=== PATIENT | female | born 1990 | race Caucasian/White ===

== ENCOUNTER 2019-12-13 09:31 | Emergency (ER) | payer SELFPAY ==
[2019-12-13 10:03] VITALS: BP 128/71; PULSE 87; RESP 20; TEMP 36.9; O2SAT 100
--- NOTE | 2019-12-13 10:17 | ED.URI ---
HPI - URI/Sore Throat General Chief Complaint: Upper Respiratory Infection Stated Complaint: cough chest congestion sore throat Time Seen by Provider: 12/13/19 10:17 Source: patient and RN notes reviewed Mode of arrival: ambulatory Limitations: no limitations History of Present Illness HPI Narrative: 29-year-old female presents with concern for 3-week history of cough, nasal congestion, brown sputum, hoarse voice. Reports intermittent fevers of up to 102 MD elicited complaint: sore throat Related Data Home Medications Medication Instructions Recorded Confirmed Bcp 12/13/19 Allergies Allergy/AdvReac Type Severity Reaction Status Date / Time No Known Allergies Allergy Unverified 04/14/19 19:40 Review of Systems Review of Systems: Narrative: CONSTITUTIONAL: Reports malaise. Denies current chills, sweats, or fever. EYES: Denies visual changes, redness, or discharge. ENT: Reports rhinorrhea, congestion, sinus pain, otalgia. Denies sore throat. CARDIOVASCULAR: Denies chest pain, palpitations, or edema. RESPIRATORY: Reports cough, chest congestion, hoarse voice. Denies dyspnea. GASTROINTESTINAL: Denies abdominal pain, nausea, vomiting, diarrhea SKIN: Denies rash or itching. MUSCULOSKELETAL: Reports myalgia. NEUROLOGIC: Reports headache. All systems reviewed & are unremarkable except as noted in HPI and below PMFSH Comments At time of signature, agree with nursing past medical, surgical, social and family history. There is no relevant family history pertinent to the presenting complaint Exam Narrative: Exam Narrative: GENERAL: Well-appearing, well-nourished, and in no acute distress. HEAD: Normocephalic EYES: PERRLA, conjunctivae clear ENT: Nares clear, turbinates edematous and erythematous, purulent discharge, sinus tenderness. Mucous membranes moist. TM pearly thompson with dull light reflex bilaterally; no tragal tenderness. Oropharynx erythematous without lesions. Tonsils not enlarged and without exudate, no drooling, no trismus. Hoarse voice NECK: Supple. No lymphadenopathy CHEST: Clear to auscultation, breath sounds equal. No wheezing, rhonchi, rales, or stridor. No respiratory distress, speaks in full sentences. Cough noted HEART: Regular rate and rhythm. No murmur heard. Normal peripheral pulses. SKIN: Warm, dry, no rash. NEURO: Alert and oriented x3. PSYCH: Normal mood and affect Course Course Emergency Course: Patient is aware of diagnosis, understands and agrees to treatment plan. Anticipatory guidance given. Patient agrees to follow-up as directed and is aware of reasons to seek care at the emergency department. Portions of this record may have been created with voice recognition software Vital Signs Vital signs: Vital Signs Temperature 98.5 F 12/13/19 10:03 Pulse Rate 87 12/13/19 10:03 Respiratory Rate 20 12/13/19 10:03 Blood Pressure 128/71 12/13/19 10:03 Pulse Oximetry 100 12/13/19 10:03 Temperature 98.5 F 12/13/19 10:03 Pulse Rate 87 12/13/19 10:03 Respiratory Rate 20 12/13/19 10:03 Blood Pressure 128/71 12/13/19 10:03 Pulse Oximetry 100 12/13/19 10:03 Reviewed. MDM - URI/Sore Throat MDM Narrative Medical decision making narrative: Differential diagnosis considered: Strep pharyngitis, allergic rhinitis, upper respiratory tract infection, sinusitis, rhinosinusitis, nasopharyngitis. viral pharyngitis, otitis media, otitis externa, pneumonia, bronchitis, viral cough syndrome, viral syndrome, and influenza. Exam findings show no acute concerns or changes; patient is non-toxic appearing and is in no distress. Patient is appropriate for outpatient treatment and follow-up. Critical Care Time Critical Care Time Critical Care Time: No Discharge Plan Discharge Clinical Impression: Sinobronchitis Patient Disposition: Home, Self-Care Condition: Stable Instructions: Antibiotic Form, Acute Bronchitis (ED) Additional Instructions: Take medications as dire
== END 2019-12-13 10:39 | disposition home or self-care (01) ==
PROVIDERS: Emergency Provider Nurse Practitioner; PCP Family Medicine Adolescent Medicine
DX: J32.9 Chronic sinusitis, unspecified (principal); J40 Bronchitis, not specified as acute or chronic; E28.2 Polycystic ovarian syndrome
CPT/HCPCS: 99213; G0463

== ENCOUNTER 2023-03-30 07:29 | Day surgery (SDC) | payer OTHER, SELFPAY ==
[2023-03-14 11:40] VITALS: BMI 28.5
[2023-03-30] VITALS (7 sets, daily range): BP systolic 88–122; BP diastolic 61–75; PULSE 72–113; RESP 14–18; TEMP 36.3–37.1; O2SAT 99–100
[2023-03-30] MEDS: LACTATED RINGERS 1,000 ML 30 ML IV CONT ×2 (08:15→10:59)
--- NOTE | 2023-03-30 08:54 | P.PNAN_ITS ---
Anes - Initial Pre Proc Eval Procedure: Operation Date: 03/30/23 09:30 Proposed Procedures p Bilateral Breast Implant Exchange with Capsulectomy - Diaz Marino MD Date/Time: 03/30/23 08:54 Surgeon: Diaz Marino MD Pre Op Diagnosis: History of Breast Augmentation Patient Data Age: 32 Gender: F Height: 1.6 m Weight: 75.3 kg Allergies Allergy/AdvReac Type Severity Reaction Status Date / Time No Known Allergies Allergy Verified 03/30/23 08:23 Home Medications Medication Instructions Recorded Confirmed Type bupropion HCl 75 mg tablet 150 mg PO DAILY 07/14/22 03/30/23 History valacyclovir 500 mg tablet 500 mg PO DAILY 07/14/22 03/30/23 History nystatin 500,000 unit tablet 500,000 unit PO TID 03/14/23 03/30/23 History potassium chloride 10 mEq 10 meq PO DAILY 03/14/23 03/30/23 History capsule,extended release thyroid (pork) 15 mg tablet (DOCKWORKER 15 mg PO DAILY 03/14/23 03/30/23 History Thyroid) thyroid (pork) 60 mg tablet (DOCKWORKER 60 mg PO DAILY 03/14/23 03/30/23 History Thyroid) Patient hx anesthesia problems: none Family hx anesthesia problems: none Results Review: All pre-operative results and documents have been reviewed as part of the pre- operative evaluation. [facility] [place] Past Medical History Medical History (Updated 03/30/23 @ 08:59 by Foster Jordan DO) Hypothyroidism Surgical History Surgical History (Updated 03/30/23 @ 08:59 by Foster Jordan DO) History of repair of vocal cord nodules removed Social History Social History Smoking status: Never smoker Alcohol intake: never Substance use: current Substance use type: marijuana Spiritual care concerns: No Anes - Eval Final PreProcedure Day of Procedure 03/30/23 08:54 Patient weight: overweight Heart: regular rate and rhythm Lungs: clear to auscultation Airway: Mallampati scale class II Neurological: alert and oriented Last oral intake: >/= 8 hours ASA classification: II Emergent: no Anesthetic plan: proceed Anesthesia type and monitoring: general LMA and standard monitoring Results Review: All pre-operative results and documents have been reviewed as part of the pre- operative evaluation. Informed Consent: The patient's anesthetic plan and its attendant risks and benefits were discussed with the patient/family/POA. Questions were solicited and answers provided to the satisfaction of the patient/family/POA.
--- NOTE | 2023-03-30 08:56 | WPDHPUPDATE1 ---
History and Physical Update Update Date/Time: 03/30/23 08:56 History and Physical has been reviewed, including an updated exam of the patient. There are NO changes in the patient's condition. Risks, benefits, and alternatives have been discussed and questions answered. Patient agrees to proceed with procedure.
--- NOTE | 2023-03-30 08:56 | W.PM.PROC2 ---
Procedure Note - Detailed Date of Procedure 03/30/23 Pre-op Diagnosis History of Breast Augmentation Post-op Diagnosis Same Procedure Performed Bilateral breast implant exchange Surgeon Diaz Marino MD Anesthesia General Findings Previous Implants: Right 68MP-420 ruptured Left 68MP-420 intact New Implants: Right REF# [id number] SN [id number] 420cc filled to 450cc Left REF#[id number] SN [id number] 420cc filled to 450 cc Description of Procedure Preoperatively the risks, benefits, alternatives were discussed in extensive detail. I wanted to be very realistic about the risks involved as well as expectations. She understands our recommendations for mastopexy / implant exchange; however, she declines and wants to just replace current implants. I was clear about how we could actually make her worse. Answered all questions to satisfaction. Voiced a clear understanding. Consent obtained. She was taken the operating room placed supine on the operating room table. Anesthesia provided by anesthesiology and prepped and draped in a standard sterile fashion. Surgical time-out was taken. 1% lidocaine and 0.25% Marcaine with epinephrine was used to provide a field block. Tegaderm nipple gale were placed. Fifteen blade used to excise the previous IMF scars. Dissection was continued down until the capsules were identified. On the right portion of anterior capsule was removed and sent to pathology. I then copiously irrigated with 3 L of saline solution on TUR tubing. Verified strict hemostasis. Bilateral medial / superior capsulotomy performed and bilateral lateral popcorn capsulorrhaphy performed. I then irrigated with Betadine containing solution. The implant was prepared on the back table removing all air as soaking in betadine solution. Implant introduced into the pocket and filled using a fill kit to the volumes above. Once happy with position / fill tubing was removed and I verified the valve was seated correctly. This was closed with 2-0 PDS followed by 3-0 Monocryl and a running subcuticular 4-0 Monocryl followed by tissue glue. Dressings were placed. She was woken taken to the PACU without difficulty. All instrument sponge counts were correct at the end of the case. Estimated Blood Loss 30 Drains No Packing No Pathology Yes (Right breast capsule) Complications No immediate complications Condition Stable Disposition PACU
[2023-03-30] MEDS: SCOPOLAMINE 1.5 MG PATCH TRANSDERM (09:07)
[2023-03-30] MEDS: ceFAZolin 2 GM/D5W 50 ML 2 GM/50 ML BAG IVPB (09:08)
[2023-03-30] MEDS: TRANEXAMIC ACID 1,000 MG/10 ML AMPUL 1000 MG IV PUSH (09:27)
[2023-03-30] MEDS: LIDO 1%/EPINEPHRINE 1:100,000 50 ML VIAL 30 ML INFILTRATE (09:43)
[2023-03-30] MEDS: NACL 0.9% IRRIG POUR BOTTLE 900 ML, GENTAMICIN SULFATE INJ 160 MG, ceFAZolin 2 GM, POVI... IRRIGATION (10:00)
[2023-03-30] MEDS: oxyCODONE HCL (*CRX) 5 MG TAB IR PO (12:03)
--- NOTE | 2023-03-30 15:34 | WPDANESPN ---
Anes - Prog Note Post-Op Date/Time: 03/30/23 15:34 Cardiovascular status: normal Respiratory status: normal Airway patency: baseline Mental status: baseline Post-Op hydration status: normal Vital Signs: Last Vital Signs Temp 36.5 C 03/30/23 11:20 Pulse 86 03/30/23 12:05 Resp 16 03/30/23 12:05 BP 122/66 03/30/23 12:05 Pulse Ox 100 03/30/23 12:05 O2 Del Method Room Air 03/30/23 12:05 O2 Flow Rate 8 03/30/23 10:53 Pain Score (VAS): 0 I/O: Intake & Output 03/29/23 03/30/23 03/30/23 23:59 07:59 15:59 Intake Total 250 Balance 250 Post-procedural complaints: none Patient Feedback: Patient satisfied with anesthetic care. Other Findings: Patient vital signs back to baseline. Patient denies nausea and vomiting. Patient's pain under control. Patient OK for discharge.
== END 2023-03-30 12:14 | disposition home or self-care (01) ==
PROVIDERS: Visit Provider Surgery Plastic and Reconstructive Surgery
PROC: (CPT 19342; principal; 2023-03-30 09:30)
DX: Z98.82 Breast implant status (principal)
CPT/HCPCS: 19342

== ENCOUNTER 2023-03-30 09:00 | Outpatient (NON) | payer SELFPAY | END 2023-03-30 09:01 | disposition home or self-care (01) | LOC: ANHLAB 04-02 09:39 | PROVIDERS: Visit Provider Surgery Plastic and Reconstructive Surgery | DX: Z98.82 Breast implant status (principal) | CPT/HCPCS: 88304 ==